=== PATIENT | female | born 1930 | race African-American/Black ===

== ENCOUNTER 2017-02-12 05:21 | Inpatient (IN) ==
[2017-02-12] MEDS ORDERED: ATIVAN IV ONE (05:33)
--- NOTE | 2017-02-12 05:37 | PROVIDER DOCUMENTATION ---
HPI-General Adult - General Chief Complaint: Altered Mental Status Stated Complaint: RESPIRATORY DISTRESS Time Seen by Provider: 02/12/17 05:30 Source: EMS Allergies/Adverse Reactions: Patient Allergies Allergy/AdvReac Type Severity Reaction Status Date / Time lidocaine Allergy Unknown Verified 12/07/16 18:10 Penicillins Allergy Unknown Verified 12/07/16 18:10 streptomycin [Streptomycin] Allergy Unknown Verified 12/07/16 18:10 Home Medications: Home Medication List Medication Instructions Recorded Confirmed Last Taken Type Albuterol 2.5MG/Ipratrop 0.5MG 1 puff INH 4XDAY 04/18/14 02/12/17 04/18/14 12: 00 History [Duoneb (A & A)] Budesonide [Pulmicort] 0.25 mg INH RTQ12H 04/18/14 02/12/17 04/17/14 21:00 History Citalopram [Celexa] 20 mg PO DAILY 04/18/14 02/12/17 04/17/14 09:00 History Divalproex Sodium [Depakote] 500 mg PO QHS 04/18/14 02/12/17 04/17/14 21:00 History Docusate Sodium [Colace] 100 mg PO DAILY 04/18/14 02/12/17 04/17/14 17:00 History Donepezil [Aricept] 10 mg PO DAILY 04/18/14 02/12/17 04/17/14 09:00 History Famotidine [Pepcid] 20 mg PO DAILY 04/18/14 02/12/17 04/17/14 17:00 History Furosemide [Lasix] 40 mg PO DAILY 04/18/14 02/12/17 04/17/14 09:00 History Multivitamin [Multi-Day Vitamins] 1 each PO DAILY 04/18/14 02/12/17 04/17/14 09: 00 History Clopidogrel Bisulfate [Plavix] 75 mg PO DAILY 12/07/16 02/12/17 Unknown History Levothyroxine Sodium [Synthroid] 137 mcg PO DAILY 12/07/16 02/12/17 Unknown History Melatonin 3 mg PO QHS 12/07/16 02/12/17 Unknown History Pramipexole [Mirapex] 0.5 mg PO TID 12/07/16 02/12/17 Unknown History Pregabalin [Lyrica] 150 mg PO QHS 12/07/16 02/12/17 Unknown History - History of Present Illness -Gen Adult Nature of Presenting Problems: pt with underlying hx of dementia, CVA was reported by [facility] staff to have been gurgling so they suctioned her, then an hour later they found her less responsive than usual with a HR of 30, low Sao2, and a BP of 90/. Pt is not able to speak tp provide any additional information Location of Pain/Injury: reports: none Review of Systems - Adult - REVIEW OF SYSTEMS - ADULT ROS:: unobtainable per condition Constitutional: denies: fever Past History - Adult - PAST MEDICAL HISTORY-ADULT Review of Records: reports: Old Records Reviewed, Nursing Assessment Review, Medications Reviewed, Social history reviewed & non-contributory. Major Childhood Illnesses: reports: denies history Cardiovascular: reports: CHF, HTN, hyperlipidemia Respiratory: reports: COPD Gastrointestinal: reports: GERD Obstetrical/Gynecological: reports: denies history Genitourinary: reports: kidney disease Musculoskeletal: reports: denies history Neurological: reports: CVA, dementia, TIA Endocrine/Immune: reports: anemia, Diabetes, thyroid disorder Other Conditions: reports: denies history Additional History: breast CA, syphillis - PRIOR HOSPITALIZATIONS Prior Hospitalizations: reports: for similar symptoms - IMMUNIZATION STATUS Childhood Immunizations: See Nurse Assessment Flu Vaccine: See Nurse Assessment - FAMILY HISTORY Family History: reviewed, not pertinent Physical Exam-General - PHYSICAL EXAM-ADULT Initial Vital Signs Reviewed: Yes - CONSTITUTIONAL General Appearance: alert, no apparent distress - EYES Eyes: PERRL/EOMI. negative: scleral icterus - HEAD, EARS, NOSE, MOUTH & THROAT HENMT: normocephalic/atraumatic, pharynx normal - NECK Neck: non-tender, full range of motion, supple, normal inspection. negative: lymphadenopathy - RESPIRATORY Respiratory: chest non-tender, no pleuratic chest pain, no respiratory distress , no accessory muscle use, wheezing (mild diffuse). negative: lungs clear, normal breath sounds - CARDIOVASCULAR Cardiovascular: no edema, no murmur, bradycardia - GASTROINTESTINAL (ABDOMEN) Abdominal Exam: normal bowel sounds, non tender, soft, no organomegaly, no pulsatile mass - MUSCULOSKELETAL Back Exam: normal inspection, no CVA tenderness, no vertebral tenderness Extremity: non-tender, normal inspection. negative: no pedal edema (trace pedal edema bilat) - SKIN Integumentary: normal color, normal turgor, warm/dry - NEUROLOGIC Neurologic: no motor/sensory deficits, other (pt non verbal) - PSYCHIATRIC Psych/Mental Status: other (unable to test) Progress - PLAN OF CARE/RESULTS Progress/Plan/Lab Results: Orders Category Date Time Status CHEST-PORTABLE [RAD] Stat Exams 02/12/17 05:31 Ordered CBC WITH ELECTRONIC DIFF [HEME] Stat Lab 02/12/17 05:31 Uncollected CMP [COMPREHENSIVE METABOLIC PANEL] [CHEM] Stat Lab 02/12/17 05:31 Uncollected Depakote [VALPROIC ACID] [TDM] Stat Lab 02/12/17 05:31 Uncollected TROPONIN T Stat Lab 02/12/17 05:32 Uncollected UA NIMS W/REFLEX CULT [URINALYSIS] Stat Lab 02/12/17 05:33 Uncollected bnp [PRO B-NATRIURETIC PEPTIDE] Stat Lab 02/12/17 05:32 Uncollected Lorazepam [Ativan] Med 02/12/17 05:33 Once 1 mg IV NOW ONE EKG [EKG] Stat Ther 02/12/17 05:24 Ordered Family reports not wanting any heroic measures Vital Signs Temp Pulse Resp BP Pulse Ox 02/12/17 09:57 90.9 F L 02/12/17 09:51 63 26 H 128/52 02/12/17 08:53 51 L 16 116/57 99 02/12/17 07:56 50 L 21 111/55 98 02/12/17 06:38 103 H 17 132/61 100 02/12/17 05:32 39 L 24 173/154 90 L lidocaine Allergy (Verified 12/07/16 18:10) Unknown Penicillins Allergy (Verified 12/07/16 18:10) Unknown streptomycin [Streptomycin] Allergy (Verified 12/07/16 18:10) Unknown Albuterol 2.5MG/Ipratrop 0.5MG [Duoneb (A & A)] 1 puff INH 4XDAY 04/18/14 Budesonide [Pulmicort] 0.25 mg INH RTQ12H 04/18/14 Citalopram [Celexa] 20 mg PO DAILY 04/18/14 Divalproex Sodium [Depakote] 500 mg PO QHS 04/18/14 Docusate Sodium [Colace] 100 mg PO DAILY 04/18/14 Donepezil [Aricept] 10 mg PO DAILY 04/18/14 Famotidine [Pepcid] 20 mg PO DAILY 04/18/14 Furosemide [Lasix] 40 mg PO DAILY 04/18/14 Multivitamin [Multi-Day Vitamins] 1 each PO DAILY 04/18/14 Clopidogrel Bisulfate [Plavix] 75 mg PO DAILY 12/07/16 Levothyroxine Sodium [Synthroid] 137 mcg PO DAILY 12/07/16 Melatonin 3 mg PO QHS 12/07/16 Pramipexole [Mirapex] 0.5 mg PO TID 12/07/16 Pregabalin [Lyrica] 150 mg PO QHS 12/07/16 Laboratory 02/12/17 02/12/17 02/12/17 06:50 05:50 05:25 WBC RBC Hgb Hct MCV MCH MCHC RDW Std Deviation Plt Count MPV Immature Gran % (Auto) Neut % (Auto) Lymph % (Auto) [place] % (Auto) Eos % (Auto) Baso % (Auto) Immature Gran # (Auto) Neut # (Auto) Lymph # (Auto) [place] # (Auto) Eos # (Auto) Baso # (Auto) Specimen Type ARTERIAL Sample Site R RADIAL pH 7.17 L* pCO2 124 H* pO2 84 HCO3 35.0 H Base Excess 13.0 H Oxyhemoglobin 94.0 L ABG O2 Sat (Calculated) 13.9 L ABG O2 Saturation 96.5 ABG Carboxyhemoglobin 1.90 ABG Methemoglobin 0.7 Kraig Test YES A-a O2 Difference 18.0 Total Hemoglobin 10.4 L Lactate 0.60 Liter Flow 4.0 Blood Gas Modality CANNULA FiO2 % 36.0 Sodium Potassium Chloride Carbon Dioxide Anion Gap BUN Creatinine Estimated GFR/1.73 m2 BUN/Creatinine Ratio Glucose Calculated Osmolality Calcium Magnesium Total Bilirubin AST ALT Alkaline Phosphatase Troponin T [id number]-Mwfqbrvsdtv Pept Total Protein Albumin Globulin Albumin/Globulin Ratio Lipase TSH 9.95 H Urine Source CATH Urine Color YELLOW Urine Turbidity CLEAR Urine pH 5.5 Ur Specific Superior 1.014 Urine Protein 30 A Ur Glucose (Stick) NEGATIVE Ur Ketones (Stick) NEGATIVE Urine Blood NEGATIVE Urine Nitrite NEGATIVE Urine Bilirubin NEGATIVE Urobilinogen Dipstick NORMAL Urine Leukocytes NEGATIVE Urine WBC (Auto) <10 Urine RBC (Auto) <10 U Epithel Cells (Auto) <10 Urine Bacteria (Auto) NEGATIVE Valproic Acid 02/12/17 02/12/17 02/12/17 05:25 05:25 05:25 WBC RBC Hgb Hct MCV MCH MCHC RDW Std Deviation Plt Count MPV Immature Gran % (Auto) Neut % (Auto) Lymph % (Auto) [place] % (Auto) Eos % (Auto) Baso % (Auto) Immature Gran # (Auto) Neut # (Auto) Lymph # (Auto) [place] # (Auto) Eos # (Auto) Baso # (Auto) Specimen Type Sample Site pH pCO2 pO2 HCO3 Base Excess Oxyhemoglobin ABG O2 Sat (Calculated) ABG O2 Saturation ABG Carboxyhemoglobin ABG Methemoglobin Kraig Test A-a O2 Difference Total Hemoglobin Lactate Liter Flow Blood Gas Modality FiO2 % Sodium Potassium Chloride Carbon Dioxide Anion Gap BUN Creatinine Estimated GFR/1.73 m2 BUN/Creatinine Ratio Glucose Calculated Osmolality Calcium Magnesium 2.6 Total Bilirubin AST ALT Alkaline Phosphatase Troponin T 0.040 Dtn-D-Beisdihauro Pept 1387 H Total Protein Albumin Globulin Albumin/Globulin Ratio Lipase 48 TSH Urine Source Urine Color Urine Turbidity Urine pH Ur Specific Superior Urine Protein Ur Glucose (Stick) Ur Ketones (Stick) Urine Blood Urine Nitrite Urine Bilirubin Urobilinogen Dipstick Urine Leukocytes Urine WBC (Auto) Urine RBC (Auto) U Epithel Cells (Auto) Urine Bacteria (Auto) Valproic Acid 02/12/17 02/12/17 05:25 05:25 WBC 5.03 RBC 4.08 L Hgb 11.2 L Hct 37.5 MCV 91.9 MCH 27.5 MCHC 29.9 L RDW Std Deviation 17.8 H Plt Count 116 L MPV 11.4 H Immature Gran % (Auto) 0.0 Neut % (Auto) 74.6 Lymph % (Auto) 13.9 L [place] % (Auto) 10.3 H Eos % (Auto) 1.0 Baso % (Auto) 0.2 Immature Gran # (Auto) 0.00 Neut # (Auto) 3.75 Lymph # (Auto) 0.70 L [place] # (Auto) 0.52 Eos # (Auto) 0.05 Baso # (Auto) 0.01 Specimen Type Sample Site pH pCO2 pO2 HCO3 Base Excess Oxyhemoglobin ABG O2 Sat (Calculated) ABG O2 Saturation ABG Carboxyhemoglobin ABG Methemoglobin Kraig Test A-a O2 Difference Total Hemoglobin Lactate Liter Flow Blood Gas Modality FiO2 % Sodium 142 Potassium 5.4 H Chloride 96 L Carbon Dioxide 38 H Anion Gap 8 BUN 54 H Creatinine 1.3 H Estimated GFR/1.73 m2 47 BUN/Creatinine Ratio 42 Glucose 82 Calculated Osmolality 297 Calcium 7.9 L Magnesium Total Bilirubin 0.25 AST 39 H ALT 48 H Alkaline Phosphatase 114 H Troponin T Foy-M-Qxjrsgeeaqn Pept Total Protein 7.1 Albumin 3.3 L Globulin 3.8 Albumin/Globulin Ratio 0.9 Lipase TSH Urine Source Urine Color Urine Turbidity Urine pH Ur Specific Superior Urine Protein Ur Glucose (Stick) Ur Ketones (Stick) Urine Blood Urine Nitrite Urine Bilirubin Urobilinogen Dipstick Urine Leukocytes Urine WBC (Auto) Urine RBC (Auto) U Epithel Cells (Auto) Urine Bacteria (Auto) Valproic Acid 48.00 L Result Diagrams: 02/12/17 05:25 02/12/17 05:25 - REASSESSMENT Reassessment #1 Time Reassessed: 06:45 Status: other (Discussed with daughter and expressed my view that survival is not expected. Comfort measures only) - EKG 1 Time of EKG reading by physician:: 05:41 EKG Interpretation (*Must complete 3 of following elements*): Abnormal Rate: 38 Rhythm: sinus maribell [place]: normal QRS: normal DE Interval: normal ST Wave: normal - XRAY 1 XRAY Study: Chest Impression: Abnormal (Diffuse pulmonary infiltrates andleft apical pneumothorax. ) - CONSULTS/PCP/HOSPITALIST Notification #1 *Consult/PCP/Hospitalist*: Time Discussed: 10:14 Departure - Departure Date of Disposition Decision: 02/12/17 Time of Disposition Decision: 10:17 DIAGNOSIS: Respiratory failure Qualifiers: Chronicity: acute Respiratory failure complication: hypoxia and hypercapnia Qualified Code(s): J96.01 - Acute respiratory failure with hypoxia Disposition: ADMITTED INPATIENT 09 Certified Medical Emergency: Emergent Condition: Stable - Critical Care Note This patient required my direct & personal management of CC.: Yes Total Time (mins): 60 Critical Care Statement: This patient required my direct personal management to treat or rule out processes, the absence of which, could potentiallly result in sudden, clinically significant life or limb threatening deterioration.
[2017-02-12] MEDS ORDERED: DUONEB (A & A) INH ONE (05:38)
[2017-02-12 05:42] LABS: MANUAL DIFF NEEDED? NO
[2017-02-12 05:46] LABS: BASO% 0.2 % (0.0-0.8); EOS# 0.05 X1000 (0.0-0.7); HEMATOCRIT 37.5 % (37.0-47.0); HEMOGLOBIN 11.2 g/dL (12.0-16.0); LYMPH% 13.9 % (20.5-51.1); MCH 27.5 PG (27-31); MCHC 29.9 g/dL (33-37); MCV 91.9 FL (81-99); MONO# 0.52 X1000 (0.11-0.59); MONO% 10.3 % (1.7-9.3); MPV 11.4 FL (7.4-10.4); NEUT% 74.6 % (42.2-75.2); PLT 116 X1000 (130-400); RBC 4.08 XMIL (4.2-5.4)
[2017-02-12] MEDS ORDERED: DOPAMINE 400 MG/D5W 400 MG/500 ML IV.SOLN IV SCH (05:53)
[2017-02-12 06:00] LABS: ALLEN TEST YES; BLOOD TYPE ARTERIAL; DRAW SITE R RADIAL; METHB 0.7 % (0.0-1.5); O2(CT) 13.9 mL/dL (15.0-23.0); PO2(98.6) 84 mmHg (60-100); SAMPLE BLOOD; SAO2 96.5 % (95.0-100.0); THB 10.4 g/dL (11.5-17.4)
[2017-02-12] MEDS ORDERED: ATROPINE SYRINGE ONE (06:01)
[2017-02-12 06:02] LABS: MODALITY CANNULA
[2017-02-12 06:03] LABS: PCO2(98.6) 124 mmHg (35-45); pH(98.6) 7.17 (7.35-7.45)
[2017-02-12] MEDS ORDERED: ATROPINE IV ONE (06:03)
[2017-02-12 06:07] LABS: MAGNESIUM 2.6 mg/dL (1.5-2.7)
[2017-02-12 06:09] LABS: ALBUMIN 3.3 g/dL (3.5-5.0); CALCIUM 7.9 mg/dL (8.8-10.2); POTASSIUM 5.4 mmol/L (3.5-5.1); TOTAL BILIRUBIN 0.25 mg/dL (0.20-1.00); TOTAL PROTEIN 7.1 g/dL (6.3-8.3)
[2017-02-12] MEDS: DOPAMINE 400 MG/D5W 400 MG/500 ML IV.SOLN IV SCH ×2 (06:10→06:25)
[2017-02-12] MEDS ORDERED: ATROPINE SYRINGE IV ONE (06:15)
--- NOTE | 2017-02-12 06:57 | Diag Imaging Result Doc PS360 ---
EXAM: CHEST-PORTABLE HISTORY: sob TECHNIQUE: AP portable upright at 0540 COMMENT: There is alveolar opacification throughout both lungs particularly in the right upper lobe. This was not the case on 08/19/2014. IMPRESSION: Pulmonary edema. Electronically signed by Ramos Linder 02/12/2017 6:55 AM
[2017-02-12 06:59] LABS: URINE CULTURE NEEDED? NO; URINE MICRO REVIEW NEEDED? NO; URINE SOURCE CATH
[2017-02-12 07:04] LABS: BILIRUBIN URINE NEGATIVE (NEGATIVE); BLOOD URINE NEGATIVE (NEGATIVE); COLOR YELLOW; GLUCOSE URINE NEGATIVE (NEGATIVE); LEUKOCYTES URINE NEGATIVE (NEGATIVE); NITRITE URINE NEGATIVE (NEGATIVE); PH URINE 5.5; PROTEIN URINE 30 mg/dL (NEGATIVE); SP GRAVITY URINE 1.014; TURBIDITY URINE CLEAR (CLEAR); UROBILINOGEN URINE NORMAL (NORMAL)
[2017-02-12 07:05] LABS: UR EPITHELIAL CELLS <10 /HPF (<10); URINE BACTERIA NEGATIVE /HPF; URINE RBC <10 /HPF (<10); URINE WBC <10 /HPF (<10)
--- NOTE | 2017-02-12 07:31 | EKG Report ---
Test Performed on : 02/12/2017 05:39:20 AM Test Reason : YOUSIF Blood Pressure : / mmHG Vent. Rate : 038 BPM Atrial Rate : 038 BPM P-R Int : 196 ms QRS Dur : 112 ms QT Int : 574 ms P-R-T Axes : 008 054 027 degrees QTc Int : 456 ms Marked sinus bradycardia. Abnormal ECG When compared with ECG of 19-AUG-2014 18:59, Nonspecific T wave abnormality no longer evident in Lateral leads Unconfirmed Result
[2017-02-12] MEDS ORDERED: MERREM 500 MG in NS 50 ML IV SCH (10:15)
[2017-02-12] MEDS ORDERED: VANCOMYCIN IV PER PHARMACY MISC SCH (10:15)
[2017-02-12] MEDS ORDERED: NS 1,000 ML IV ONE (10:24)
[2017-02-12 10:28] LABS: ALLEN TEST YES; BE 10.5 mmoll (-3.0-3.0); BLOOD TYPE ARTERIAL; DRAW SITE L RADIAL; METHB 1.1 % (0.0-1.5); O2(CT) 16.1 mL/dL (15.0-23.0); PO2(98.6) 117 mmHg (60-100); SAMPLE BLOOD; SAO2 98.8 % (95.0-100.0); THB 11.8 g/dL (11.5-17.4)
[2017-02-12 10:31] LABS: MODALITY BI PAP; PCO2(98.6) 136 mmHg (35-45); pH(98.6) 7.12 (7.35-7.45)
[2017-02-12] MEDS ORDERED: VANCOMYCIN 2,000 MG in NS 500 ML IV SCH (12:00)
[2017-02-12] MEDS: LOVENOX SUBQ SCH (18:06)
[2017-02-12] MEDS: PROTONIX IV SCH (18:06)
[2017-02-12] MEDS: ATIVAN IV PRN (18:07)
[2017-02-12] MEDS: SODIUM CHLORIDE 0.9% INJ SCH (18:07)
[2017-02-12] MEDS: DUONEB (A & A) INH SCH ×2 (19:41→23:36)
--- NOTE | 2017-02-12 20:22 | HISTORY AND PHYSICAL ---
CHIEF COMPLAINT: Respiratory distress. HISTORY OF PRESENT ILLNESS: Ms. Yuan is an 86-year-old patient resident of [facility] was found to have respiratory distress at the senior care head porter today. The patient is not able to give any history. History taken from ER record. According to senior care staff, patient was gurgling. She had some vomitus on her. They suctioned her an hour later and patient was found to be less responsive, hypoxemic and bradycardic. Her blood pressure was low. The patient was not communicating. She was weak and lethargic. EMS was called and patient was sent to the emergency room. The patient was on the way. She was given oxygen via Ambu bag. When the patient came to the ER, she was still hypoxemic and poorly responsive. She was evaluated by ER physician. They were about to intubate her but daughter arrived and daughter requested DNR. The patient is DNR from the senior care. Daughter requested comfort measures only. The patient does have multiple medical problems including history of bilateral breast cancer status post mastectomy, history of thyroid cancer, dementia, anxiety, situational depression, osteoarthritis, gastritis and hypothyroidism. No further history available at this time. No history suggestive of unusual cough or expectoration. No diarrhea or blood or mucus in the stool. Patient did have anxiety and some behavioral issue, significant arthritic pain in the shoulder and knee. No further history available at this time. ALLERGIES: Lidocaine, penicillin and streptomycin. PAST MEDICAL HISTORY: Hypertension, hypothyroidism, gastritis and reflux disease. COPD, history suggestive of CHF, bilateral breast cancer and mastectomy, thyroid cancer, osteoarthritis and dementia, Parkinson disease and peripheral neuropathy. PERSONAL HISTORY: Single. Lives in the senior care. Needs assistance in activity of daily living. FAMILY HISTORY: Noncontributory. REVIEW OF SYSTEMS: As per HPI. Otherwise unobtainable. HOME MEDICATIONS: Includes the patient is on one nebulizer treatment, Pulmicort, Celexa, Plavix, Depakote, Colace, Aricept, Pepcid, Lasix, Synthroid, Namenda, multivitamin Mirapex and Lyrica. PHYSICAL EXAMINATION: GENERAL: Elderly white female patient in mild distress. The patient is on BiPAP. VITAL SIGNS: Last blood pressure at 04:00 in the evening 94/67, pulse 73, respirations 34, and temperature 98.3 degrees. The patient is on BiPAP. SKIN: Senile turgor. No rash or petechiae. HEENT: Head atraumatic, normocephalic. [place] conjunctivae. Anicteric sclerae. Extraocular muscle movement. The patient is uncooperative. Ears benign. I cannot do nose and pharyngeal exam as the patient being on BiPAP. NECK: Supple. No JVD, thyromegaly or lymphadenopathy. CHEST: Bibasilar crepitation. Occasional wheezing. CARDIOVASCULAR: S1 and S2 heard. No gallop or thrill. ABDOMEN: Soft, globular. Bowel sounds present. No organomegaly or mass. EXTREMITIES: No cyanosis or clubbing. No acute DVT. Crepitation in both the knee joints. There is significant arthritis in both knees. CONTRACT NEGOTIATION SPECIALIST: Alert. When I saw the patient, she was more alert and awake but uncooperative for detailed exam. LABORATORY DATA: Lab data done on admission, hemoglobin 11.2, hematocrit 37.5. WBC count 5.03, platelet count 116,000. Blood gas done on admission, pH 7.12, pCO2 136, PO2 was 117. Electrolytes: Sodium 142, potassium 5.4, chloride 96, BUN 54, creatinine 1.31, TSH 9.95. Urinalysis was benign. Mild proteinuria. Depakote level was 48. CONSIDERATION: Hypercapnic respiratory failure and possible aspiration pneumonia. COPD. Alzheimer's type dementia. Osteoarthritis. Mild hyperkalemia. History of bilateral breast cancer. Status post mastectomy. Gastritis and reflux disease. Hypothyroidism. PLAN: Admit the patient. Pulmonary toilet. IV antibiotics. Family requested comfort care. Overall prognosis is poor. Family is aware of the prognosis. cc: Oziel Martínez MD
[2017-02-12] MEDS: CLINDAMYCIN 600 MG/NS 600 MG/50 ML IVPB IV SCH (22:58)
[2017-02-13] MEDS: DUONEB (A & A) INH SCH ×4 (03:06→20:41)
[2017-02-13] MEDS: CLINDAMYCIN 600 MG/NS 600 MG/50 ML IVPB IV SCH (05:47)
--- NOTE | 2017-02-13 06:37 | PROGRESS NOTE ---
DATE: 02/13/2017 SUBJECTIVELY: Ms. Yuan is not doing well. The patient is unresponsive, sedated. At times her blood pressure was dropping. Her oxygen saturation was dropping. The patient is on BiPAP. No high-grade fever or chills. No nausea or vomiting. The patient's daughter was present yesterday. Patient was looking some better. I started her on clindamycin for possible aspiration pneumonia. OBJECTIVE: Vital Signs: Her vital signs noted. Neck: Supple. No JVD. Lungs: Bibasilar crepitations. Decreased air entry both lower lungs. CVS: S1 and S2 heard. At times bradycardia. Abdomen: Soft, globular. Bowel sounds present. ADMINISTRATIVE OFFICE MANAGER: Patient is sedated. Poorly responsive. Uncooperative for detailed exam. CONSIDERATION: 1. Patient admitted with altered mental status. 2. Metabolic encephalopathy. 3. Possible aspiration pneumonia. 4. She does have advanced dementia. 5. Hypothyroidism. 6. Respiratory acidosis. I had lengthy discussion with the daughter. She requested comfort care only. I stopped everything other than comfort care. She requested not to do any blood work. We will request family's wishes. Overall prognosis is poor. She does understand overall prognosis and consequences. cc: Oziel Martínez MD
[2017-02-13] MEDS: ATIVAN IV PRN (17:21)
[2017-02-13] MEDS: SODIUM CHLORIDE 0.9% INJ SCH (17:31)
[2017-02-13] MEDS: LOVENOX SUBQ SCH (17:31)
[2017-02-13] MEDS: PROTONIX IV SCH (17:31)
[2017-02-14] MEDS: MORPHINE IV PRN ×2 (01:23→09:06)
[2017-02-14] MEDS: DUONEB (A & A) INH SCH ×4 (04:09→20:16)
--- NOTE | 2017-02-14 13:18 | PROGRESS NOTE ---
DATE: 02/14/2017 SUBJECTIVE: An 86-year-old female who has been admitted to the hospital with altered mental status, metabolic encephalopathy, aspiration pneumonia, respiratory acidosis, associated with advanced dementia and hypothyroidism. The patient's daughter was at the bedside. The patient is obtunded, on 100% non-rebreather. Dr. Martínez made the plans for comfort care. She is resting very well. Not in obvious respiratory distress. REVIEW OF SYSTEMS: None reported. OBJECTIVE: Vital Signs: Low-grade fever. Pulse is 54. Blood pressure is stable. On 15L, 97%. General: Heavy set . Lungs: Some rhonchi, transmitted sounds. Cardiovascular: Distant heart sounds. Abdomen: Belly is soft, obese. The rest of the exam is stable. ASSESSMENT AND PLAN: 1. Acute respiratory failure. 2. Aspiration pneumonia. 3. Respiratory acidosis. 4. Advanced dementia. 5. Comfort care. PLAN OF CARE: 1. Care of the skin, bladder, and bowels. 2. Deep venous thrombosis prophylaxis with Lovenox. 3. Continue on morphine for pain symptom management. 4. Ativan for agitation. 5. GI prophylaxis with IV Protonix. Discussed with the daughter DNR level 1. LEVEL OF DOCUMENTATION: Fifteen minutes. cc: MD Oziel Dykes MD
[2017-02-14] MEDS: LOVENOX SUBQ SCH (18:10)
[2017-02-14] MEDS: PROTONIX IV SCH (18:10)
[2017-02-14] MEDS: ATIVAN IV PRN (20:30)
[2017-02-15] MEDS: MORPHINE IV PRN ×3 (03:13→23:50)
[2017-02-15] MEDS: DUONEB (A & A) INH SCH ×5 (04:27→22:07)
--- NOTE | 2017-02-15 08:00 | PROGRESS NOTE ---
DATE: 02/15/2017 SUBJECTIVE: Patient is stable. Daughter was at the bedside. Nonrebreather. Obtunded, confused, not responding, not in obvious respiratory distress. OBJECTIVE: Vitals are stable. Chest is clear. Heart sounds distant. Patient is flaccid. ASSESSMENT AND PLAN: Advanced dementia, with aspiration pneumonia and respiratory failure. Continue symptom management for shortness of breath, secretions, and agitations, as per Dr. Martínez, with morphine and Ativan. Living will, DNR. Waiting for demise. Continue comfort care. Resting peacefully. LEVEL OF DOCUMENTATION: 15 minutes. cc: MD Oziel Dykes MD
[2017-02-15] MEDS: LOVENOX SUBQ SCH (17:27)
[2017-02-15] MEDS: SODIUM CHLORIDE 0.9% INJ SCH (17:27)
[2017-02-15] MEDS: PROTONIX IV SCH (17:27)
[2017-02-16] MEDS: DUONEB (A & A) INH SCH ×5 (03:08→22:47)
[2017-02-16] MEDS: MORPHINE IV PRN ×5 (04:50→23:20)
[2017-02-16] MEDS: ATIVAN IV PRN (07:31)
--- NOTE | 2017-02-16 08:42 | Diag Imaging Result Doc PS360 ---
CHEST-PORTABLE - 02/16/2017 INDICATION: sob TECHNIQUE: COMPARISON: 02/12/2017 FINDINGS: The left hemithorax is completely opacified. There is progression in the volume loss on the left side, with severe deviation of the heart and trachea to the left. There is grossly stable diffuse infiltrate throughout the right lung. IMPRESSION: Apparent complete collapse of the left lung, with deviation of the trachea and mediastinum to the left. Probably due to mucous plugging or other airway obstruction. Grossly stable multilobar infiltrate/pneumonia throughout the right lung. Electronically signed by Osmin Gee 02/16/2017 8:39 AM
[2017-02-16 08:50] LABS: MANUAL DIFF NEEDED? NO
[2017-02-16 08:55] LABS: BASO% 0.1 % (0.0-0.8); EOS# 0.02 X1000 (0.0-0.7); EOS% 0.2 % (0.0-10.0); HEMATOCRIT 31.5 % (37.0-47.0); HEMOGLOBIN 9.6 g/dL (12.0-16.0); LYMPH% 7.1 % (20.5-51.1); MCH 27.4 PG (27-31); MCHC 30.5 g/dL (33-37); MCV 89.7 FL (81-99); MONO# 1.06 X1000 (0.11-0.59); MONO% 12.6 % (1.7-9.3); MPV 11.2 FL (7.4-10.4); PLT 124 X1000 (130-400); RBC 3.51 XMIL (4.2-5.4)
[2017-02-16 09:23] LABS: AGAP 9; ALBUMIN 2.9 g/dL (3.5-5.0); ALKALINE PHOSPHATASE 70 U/L (32-104); BUN 39 mg/dL (8-22); CHLORIDE 104 mmol/L (98-107); COSMO 309; GOT 16 U/L (10-30); GPT 19 U/L (10-36); POTASSIUM 5.1 mmol/L (3.5-5.1); SODIUM 151 mmol/L (136-145); TCO2 38 mmol/L (25-35); TOTAL BILIRUBIN 0.59 mg/dL (0.20-1.00); TOTAL PROTEIN 6.5 g/dL (6.3-8.3)
[2017-02-16] MEDS: PROTONIX IV SCH (17:11)
[2017-02-16] MEDS: SODIUM CHLORIDE 0.9% INJ SCH (17:12)
[2017-02-16] MEDS: LOVENOX SUBQ SCH (17:12)
--- NOTE | 2017-02-16 19:14 | PROGRESS NOTE ---
DATE: 02/16/2017 SUBJECTIVE: Ms Yuan is doing fair. At times, patient is awake, trying to communicate. Other times patient seems to be in some respiratory distress. She is off her BiPAP. Low-grade fever of 99.6. Not able to give any history. OBJECTIVE: Vital signs: Noted. T-max 99.6 degrees, at times tachypneic. Lungs: Decreased air entry left lung. Inspiratory crepitation right lung. CVS: S1 and S2. Tachycardia. Abdomen: Soft, globular. Bowel sounds present. FISCAL OFFICER: Alert, awake. Uncooperative for detailed exam. CONSIDERATION: 1. Possible aspiration pneumonia. 2. Altered mental status. 3. Respiratory failure. 4. The patient does have a history of breast cancer. PLAN: The patient is not doing well. Daughter wants me to check lab and x-ray which I did. Her lab data revealed hemoglobin 9.6, hematocrit 31.5, WBC count 8.41, platelet count 124,000. Electrolytes results noted. Potassium was 5.1, BUN 39, creatinine 0.8. Chest x-ray did reveal complete collapse of the left lung with deviation of the trachea and mediastinum to the left. Multilobar infiltrate or pneumonia throughout the right lung. Discussed result with the daughter. We decided to continue comfort care and supportive care. Overall prognosis is poor. Family is aware of the prognosis. cc: Oziel Martínez MD
[2017-02-17] MEDS: MORPHINE IV PRN ×5 (02:03→20:50)
[2017-02-17] MEDS: DUONEB (A & A) INH SCH ×4 (03:52→22:44)
[2017-02-17] MEDS ORDERED: APRESOLINE IV PRN (07:01)
--- NOTE | 2017-02-17 07:19 | PROGRESS NOTE ---
DATE: 02/17/2017 SUBJECTIVE: Ms. Yuan is doing fair. The patient is poorly responsive, still requiring 100% FiO2. At times, her blood pressure is high. Patient is tachypneic at time. Not able to give good history. The patient's daughter was present. OBJECTIVE: Vital signs noted. Neck supple. No JVD. Lungs: Decreased air entry, left lung. Inspiratory crepitation right side. Cardiovascular: S1 and S2 heard. Abdomen: Soft, globular. Bowel sounds present. GRAIN SHIPPER: Alert, awake. The patient is poorly responsive. Uncooperative for detailed exam. Patient's chest x-ray and lab data discussed with her daughter who was present. Overall plan and prognosis discussed which is poor. Daughter is in agreement. We did discuss about antibiotics treatment, and we decided to do comfort care only. I am going to get inpatient hospice evaluation. Will continue rest of the treatment and comfort care. PROBLEMS: 1. Aspiration pneumonia. 2. Respiratory failure. 3. Hypertension. cc: Oziel Martínez MD
[2017-02-17] MEDS: ATIVAN IV PRN ×3 (09:35→23:15)
[2017-02-17] MEDS: PROTONIX IV SCH (17:44)
[2017-02-17] MEDS: LOVENOX SUBQ SCH (17:44)
[2017-02-17] MEDS ORDERED: TRANSDERM-SCOP TD SCH (21:15)
[2017-02-17 21:51] VITALS: BP 179/65
[2017-02-18] MEDS: MORPHINE IV PRN ×2 (01:54→01:55)
[2017-02-18] MEDS: DUONEB (A & A) INH SCH (03:57)
--- NOTE | 2017-02-18 06:57 | DISCHARGE SUMMARY ---
ADMISSION DATE: 02/12/2017 DISCHARGE DATE: 02/18/2017 FINAL DISCHARGE DIAGNOSES: 1. Aspiration pneumonia. 2. Acute respiratory failure. 3. Alzheimer's type dementia. 4. Breast cancer. 5. Hypothyroidism. 6. Chronic obstructive pulmonary disease exacerbation. 7. Gastritis. 8. Osteoarthritis. HISTORY: Ms. Yuan is an 86-year-old, patient, resident of [facility]. The patient was found to be lethargic and in respiratory failure. Nurses found her having vomiting. She was gurgling. They did suction. The patient improved some. Her O2 saturation was still low. The patient was brought to the emergency room. The ER doctor was about to intubate her. As per patient and family's wishes, they made her DNR. Patient was very sick. ER physician was thinking she may not make it to the floor. They watched her in the ER for a few hours. The patient was doing fair. They admitted her to the floor. At the family's request, we kept her comfortable. When I evaluated the patient, the patient was on BiPAP doing some better. Talked to the family. They requested still comfort measure. I did some lab work. I ordered IV antibiotics. Considering her overall health, family requested not to do any blood work or lab data, and we just kept her comfortable. Her BiPAP was discontinued. We kept her on oxygen via Ventimask. At 1 time family wanted to check x-ray and blood work, which I did. Her clinical condition continued to deteriorate. The patient on February 18 manager appointment. Family was present. LAB DATA: Revealed last hemoglobin 9.6, hematocrit 31.5, WBC count 8.41, platelet count 124,000. Blood gas on admission, pH 7.12, pCO2 136, PO2 was 117. This was done on BiPAP with 50% FiO2. Lab done on February 16, sodium 151, potassium 5.1, CO2 38, BUN 39, creatinine was 0.5. Urinalysis was negative. Chest x-ray done on February 16, reveal apparent complete collapse of the left lung with deviation of the trachea and mediastinum to the left probably due to mucous plugging or other airway obstruction, multi lobar infiltrate or pneumonia throughout the right lung. We did discuss with family about pulmonary evaluation, bronchoscoped and the family decided not to have any intervention and we kept the patient comfortable. cc: Oziel Martínez MD
== END 2017-02-18 03:04 | disposition expired ==
LOC: ED 05:21 → 3N 13:58
PROVIDERS: ADMIT Internal Medicine; ATTEND Internal Medicine